=== PATIENT | male | born 1945 | race Caucasian/White ===

== ENCOUNTER 2021-04-23 10:50 | Outpatient (CLI) | payer MEDICARE, BC ==
[~2021-04-23] VITALS: Ht 185.4 cm; Wt 108.9 kg
[2021-04-23 10:37] LABS: BASOPHILS % (AUTO) 0.2 % (0-1); EOSINOPHILS # (AUTO) 0.2 X10'3 (0-0.9); EOSINOPHILS % (AUTO) 2.8 % (0-6); LYMPHOCYTES # (AUTO) 1.5 X10'3 (1.1-4.8); LYMPHOCYTES % (AUTO) 23.9 % (21-51); MEAN CORPUSCULAR HEMOGLOBIN 28.3 PG (27.0-31.0); MEAN CORPUSCULAR HGB CONC 33.6 g/dL (33.0-36.5); MEAN CORPUSCULAR VOLUME 84.3 FL (78-98); MEAN PLATELET VOLUME 7.6 FL (7.4-10.4); MONOCYTES # (AUTO) 0.6 X10'3 (0-0.9); MONOCYTES % (AUTO) 10.2 % (2-12); NEUTROPHILS # (AUTO) 3.9 X10'3 (1.8-7.7); NEUTROPHILS % (AUTO) 62.9 % (42-75); PRE OP HEMATOCRIT 41.5 % (42.0-52.0); PRE OP HEMOGLOBIN 13.9 g/dL (14.0-17.9); PRE OP PLATELET COUNT 226 X10'3 (140-440); RED BLOOD COUNT 4.92 X10'6 (4.70-6.10); RED CELL DISTRIBUTION WIDTH 15.4 % (11.5-14.5)
[2021-04-23 10:43] LABS: PRE OP PROTIME 10.8 SECONDS (9.0-12.0)
[2021-04-23 10:47] LABS: ALBUMIN 3.4 G/DL (3.4-5.0); ALKALINE PHOSPHATASE 91 IU/L (46-116); BLOOD UREA NITROGEN 15 MG/DL (7-18); BUN/CREATININE RATIO 10.7 (5.4-32.0); CALCIUM 8.9 MG/DL (8.5-10.1); CHLORIDE 107 MMOL/L (99-107); PRE OP ALT 42 U/L (30-65); PRE OP ANION GAP 4 (8-16); PRE OP AST 22 U/L (10-37); PRE OP BILIRUB, TOTAL 0.9 MG/DL (0.0-1.0); PRE OP GLUCOSE 99 MG/DL (70-104); PRE OP POTASSIUM 4.4 MMOL/L (3.4-5.1); PRE OP SODIUM 139 MMOL/L (135-145); TOTAL CARBON DIOXIDE 28.3 MMOL/L (24-32); TOTAL PROTEIN 6.9 G/DL (6.4-8.2); eGFR 50 ML/MIN
[~2021-04-23 10:50] MED LIST: METO-395 PO
[2021-04-27] MEDS ORDERED: ringers solution, lacted 1,000 ML IV SCH (05:00)
[2021-04-27] MEDS ORDERED: DOCUMENT DATE & TIME OF BETA-BLOCKER PO ONE (05:30)
[2021-04-27] MEDS ORDERED: famotidine 20mg tablet PO ONE (05:30)
[2021-04-27] MEDS ORDERED: cefazolin/dext.iso 2gm/50ml IV ONE (05:30)
== END 2021-04-23 23:59 | disposition home or self-care (01) ==
LOC: PRE-OP 10:50 → EDSTATUS 04-27 12:00
PROVIDERS: ATTEND Surgery
DX: Z01.812 Encounter for preprocedural laboratory examination (principal); R91.8 Other nonspecific abnormal finding of lung field; Z20.822 Contact with and (suspected) exposure to COVID-19
CPT/HCPCS: 36415; 71046; 80053; 85025; 85610; 85730; 86885; 86900; 86901; 87081; U0003; U0005; J0690; J7120

== ENCOUNTER 2021-06-04 07:33 | Inpatient (IN) | payer MEDICARE, BC ==
[2021-05-30 15:42] LABS: BASOPHILS % (AUTO) 0.1 % (0-1); EOSINOPHILS # (AUTO) 0.2 X10'3 (0-0.9); EOSINOPHILS % (AUTO) 4.2 % (0-6); LYMPHOCYTES # (AUTO) 1.5 X10'3 (1.1-4.8); LYMPHOCYTES % (AUTO) 26.7 % (21-51); MEAN CORPUSCULAR HEMOGLOBIN 27.3 PG (27.0-31.0); MEAN CORPUSCULAR HGB CONC 32.4 g/dL (33.0-36.5); MEAN CORPUSCULAR VOLUME 84.3 FL (78-98); MEAN PLATELET VOLUME 7.4 FL (7.4-10.4); MONOCYTES # (AUTO) 0.7 X10'3 (0-0.9); MONOCYTES % (AUTO) 12.4 % (2-12); NEUTROPHILS # (AUTO) 3.3 X10'3 (1.8-7.7); NEUTROPHILS % (AUTO) 56.6 % (42-75); PRE OP HEMOGLOBIN 13.3 g/dL (14.0-17.9); PRE OP PLATELET COUNT 239 X10'3 (140-440); RED BLOOD COUNT 4.86 X10'6 (4.70-6.10)
[2021-05-30 15:51] LABS: APTT 27 SECONDS (22-32)
[2021-05-30 15:53] LABS: CLARITY,URINE CLEAR (Clear); COLOR,URINE YELLOW (Yellow); GLUCOSE, URINE NEGATIVE (Neg); KETONES,URINE NEGATIVE (Neg); LEUKOCYTE ESTERASE ,URINE NEGATIVE (Neg); NITRITES, URINE NEGATIVE (Neg); OCCULT BLOOD,URINE NEGATIVE (Neg); PH,URINE 5.5 (4.8-8.0); PROTEIN,URINE NEGATIVE (Neg); UROBILINOGEN,URINE 0.2 E.U/dL (0.2-1.0)
[2021-05-30 15:53] LABS: ABG BASE EXCESS 0.4 mmol/L (-2.0-2.0); ABG HCO3 24.4 mmol/L (22.0-26.0); ABG OXYGEN SATURATION 95.9 % (94-97); ABG PCO2 (T) 37.4 mmHg (35.0-48.0); ABG PO2 (T) 75.8 mmHg (75.0-100.0); ALLEN'S TEST POSITIVE; FCOHb 0.8 % (0.0-3.9); FMetHb 0.3 % (0.0-1.5); FO2Hb 94.8 % (94-97)
[2021-05-30 15:54] LABS: UA COLLECTION TYPE CLN CATCH MIDSTREAM
[2021-05-30 15:58] LABS: ALBUMIN 3.2 G/DL (3.4-5.0); ALBUMIN/GLOBULIN RATIO 0.9 (1.1-1.5); ALKALINE PHOSPHATASE 176 IU/L (46-116); BLOOD UREA NITROGEN 13 MG/DL (7-18); BUN/CREATININE RATIO 9.6 (5.4-32.0); CALCIUM 8.8 MG/DL (8.5-10.1); CHLORIDE 105 MMOL/L (99-107); CREATININE 1.36 MG/DL (0.60-1.10); PRE OP ALT 64 U/L (30-65); PRE OP ANION GAP 10 (8-16); PRE OP AST 37 U/L (10-37); PRE OP BILIRUB, TOTAL 0.9 MG/DL (0.0-1.0); PRE OP GLUCOSE 102 MG/DL (70-104); PRE OP POTASSIUM 4.6 MMOL/L (3.4-5.1); PRE OP SODIUM 140 MMOL/L (135-145); TOTAL CARBON DIOXIDE 25.4 MMOL/L (24-32); TOTAL PROTEIN 6.6 G/DL (6.4-8.2); eGFR 51 ML/MIN
[2021-06-04] VITALS (11 sets, daily range): BP systolic 125–156; BP diastolic 70–90
[~2021-06-04] VITALS: Ht 185.4 cm; Wt 108.9 kg
[~2021-06-04 07:33] MED LIST changes: +DOCUMENT DATE & TIME OF BETA-BLOCKER PO ONE; +albuterol 2.5 MG/3 ML nebule NEB PRN; +cefazolin/dext.iso 2gm/50ml IV ONE; +famotidine 20mg tablet PO ONE; +ringers solution, lacted 1,000 ML IV SCH
[2021-06-04] MEDS ORDERED: iohexol 300mg/ml 100ml inj. ONE ×2 (09:15→09:34)
--- NOTE | 2021-06-04 10:05 | NUR ---
[facility]
--- NOTE | 2021-06-04 12:16 | NUR ---
PATIENT RIGHT WRIST MEASURE AT 8 INCHES AND 1/4 PREVIOUSLY AND REMAINS UNCHANGED. WARM COMPRESSES RE APPLIED NEEDED AND CONTINUED TO ELEVATE RIGHT ARM.
[2021-06-04] MEDS ORDERED: BUPIVAcaine 0.5% inj/PF 30 ML ONE ×2 (12:42→13:27)
[2021-06-04] MEDS ORDERED: BUPIVACAINE liposomal/PF 13.3 MG/ML vial IM ONE (12:42)
--- NOTE | 2021-06-04 12:53 | NUR ---
EDEMA UNCHANGED DR SANTOS NOTIFIED OF INFILTRATION DURING CT. RUE REMAins elevated with compresses on
--- NOTE | 2021-06-04 13:35 | NUR ---
wrist measured at 8 1/2 inch around so slightly more edema. dr carreon here to see patient and was able to check on patients right hand edema. he advised to keep elevated and start iv on left side which was done and fluids running on left side only. patient going back to OR now and OR nurse notified of infiltration as well.
[2021-06-04] MEDS ORDERED: albumin (Human) 5% 250ml BOTTLE IV ONE (13:36)
[2021-06-04] MEDS ORDERED: sevoflurane 250ml liquid IH ONE (13:36)
[2021-06-04] MEDS ORDERED: midazolam 1 mg/ML 2ml injection ONE (13:41)
[2021-06-04] MEDS ORDERED: propofol inj 20 ML IV ONE (16:40)
[2021-06-04] MEDS ORDERED: glycopyrrolate 0.2mg/ml inj ONE (16:40)
[2021-06-04] MEDS ORDERED: ePHEDrine 50MG/ML INJ. ONE (16:40)
[2021-06-04] MEDS ORDERED: rocuronium 10mg/ml inj IV ONE ×3 (16:40)
[2021-06-04] MEDS ORDERED: LIDOcaine 2% (20mg/ml) 5ml vial ONE (16:40)
[2021-06-04] MEDS ORDERED: fentaNYL /PF 50mcg/ml 5ml ampule ONE (16:40)
[2021-06-04] MEDS ORDERED: meperidine/PF 25mg/ml syringe IV PRN ×2 (17:45)
[2021-06-04] MEDS ORDERED: morphine 4 MG/ML inj SYRINge IV PRN ×2 (17:45→20:00)
[2021-06-04] MEDS ORDERED: morphine 2 MG/ML inj. syringe IV PRN ×2 (17:45→20:00)
[2021-06-04] MEDS ORDERED: labetalol 20mg/4ml (5mg/ml) syringe IV PRN (17:45)
[2021-06-04] MEDS ORDERED: proCHLORperazine 10 MG/2 ml inj IV PRN (17:45)
[2021-06-04] MEDS ORDERED: acetaminophen 1,000mg/100ml IV 100 ML IV PRN (17:45)
[2021-06-04] MEDS ORDERED: hydrALAZINE 20mg/ml inj. IV PRN (17:45)
[2021-06-04] MEDS ORDERED: ondansetron/PF 4mg/2ml inj IV PRN ×2 (17:45→20:00)
[2021-06-04] MEDS ORDERED: ringers solution, lacted 1,000 ML IV SCH (17:45)
[2021-06-04] MEDS ORDERED: sugammadex 200mg/2ml injection IV ONE (18:32)
[2021-06-04] MEDS ORDERED: ceFAZolin 1000mg inj ONE (19:08)
[2021-06-04] MEDS ORDERED: ondansetron/PF 4mg/2ml inj ONE (19:08)
[2021-06-04] MEDS ORDERED: dexamethasone sod phosphate 4mg/ml inj. ONE (19:08)
[2021-06-04] MEDS ORDERED: morphine 4 MG/ML inj SYRINge ONE (19:37)
--- NOTE | 2021-06-04 19:40 | NUR ---
Received from OR via HOSPITAL BED, accompanied by Anesthesiologist DR SANTOS and report given by Anesthesiolgist. PT PRESENTS WITH PIV 18G LEFT AC, 20G RIGHT AC, ART LINE LEFT WRIST, TRIPLE LUMEN CENTRAL LINE RIGHT NECK, CHEST TUBE LEFT CHEST, VSS. Addendum: 06/04/21 at 2008 by Leslie Whatley RN, RN Amended: Links added.
[2021-06-04] MEDS: meperidine/PF 25mg/ml syringe IV PRN ×2 (19:54→20:11)
[2021-06-04] MEDS ORDERED: HYDROcodone/acetaminophen 10/325mg tab PO PRN (20:00)
[2021-06-04] MEDS ORDERED: albuterol 2.5 MG/3 ML nebule NEB PRN (20:00)
[2021-06-04] MEDS ORDERED: CADD PCA waste documentation MC PRN (20:00)
[2021-06-04] MEDS ORDERED: naloxone 0.4 mg/ml inj IV PRN (20:00)
[2021-06-04] MEDS ORDERED: potassium Cl 20mEq in D5-NS 1,000 ML IV SCH (20:00)
[2021-06-04] MEDS ORDERED: HYDROmorphone inj. 0.5 MG/0.5 ML DISP.SYRIN IV PRN (20:00)
[2021-06-04 20:07] LABS: ABG BASE EXCESS -4.2 mmol/L (-2.0-2.0); ABG OXYGEN SATURATION 98.7 % (94-97); ABG PCO2 (T) 37.1 mmHg (35.0-48.0); ABG PO2 (T) 128.5 mmHg (75.0-100.0); FCOHb 0.3 % (0.0-3.9); FLOW 8 L/min; FMetHb 0.3 % (0.0-1.5); FO2Hb 98.1 % (94-97); TOTAL HEMOGLOBIN 13.2 G/dl (14.0-18.0)
--- NOTE | 2021-06-04 20:40 | NUR ---
Report called to receiving nurse JASON SANCHEZ. Transferred via HOSPITAL BED WITH MONITOR AND SUCTION FOR CHEST TUBE TO ROOM 2043. DENTURES AND 2 PT Belonging BAGS TO ROOM 2043. Special Issues communicated to receiving nurse. Addendum: 06/04/21 at 2055 by Leslie Whatley RN RN Amended: Links added.
[2021-06-04] MEDS: gabapentin 300mg capsule PO SCH (21:43)
[2021-06-04] MEDS: HYDROcodone/acetaminophen 10/325mg tab PO PRN (21:44)
[2021-06-05] VITALS (23 sets, daily range): BP systolic 113–188; BP diastolic 50–70
[2021-06-05] MEDS: ceFAZolin 1GM/D5W- ADD-VANTAGE 50 ML IV SCH ×2 (00:02→07:11)
[2021-06-05] MEDS: metoclopramide 5 mg/ml inj IV PRN ×2 (00:42→09:01)
[2021-06-05 03:30] LABS: BASOPHILS % (AUTO) 0.1 % (0-1); EOSINOPHILS % (AUTO) 0 % (0-6); HEMATOCRIT 38.6 % (42.0-52.0); HEMOGLOBIN 12.4 g/dl (14.0-17.9); LYMPHOCYTES # (AUTO) 0.4 X10'3 (1.1-4.8); LYMPHOCYTES % (AUTO) 3.7 % (21-51); MEAN CORPUSCULAR HEMOGLOBIN 27.1 PG (27.0-31.0); MEAN CORPUSCULAR HGB CONC 32.1 g/dL (33.0-36.5); MEAN CORPUSCULAR VOLUME 84.6 FL (78-98); MEAN PLATELET VOLUME 7.2 FL (7.4-10.4); MONOCYTES # (AUTO) 0.6 X10'3 (0-0.9); MONOCYTES % (AUTO) 6.2 % (2-12); NEUTROPHILS # (AUTO) 8.7 X10'3 (1.8-7.7); PLATELET COUNT 235 X10'3 (140-440); RED BLOOD COUNT 4.56 X10'6 (4.70-6.10); RED CELL DISTRIBUTION WIDTH 16.1 % (11.5-14.5); WHITE BLOOD COUNT 9.7 X10'3 (4.5-11.0)
[2021-06-05 03:39] LABS: ALANINE AMINOTRANSFERASE 54 U/L (12-78); ALBUMIN 2.8 G/DL (3.4-5.0); ALBUMIN/GLOBULIN RATIO 0.8 (1.1-1.5); ALKALINE PHOSPHATASE 139 IU/L (46-116); ANION GAP 11 (8-16); ASPARTATE AMINO TRANSFERASE 32 U/L (10-37); BILIRUBIN,TOTAL 0.6 MG/DL (0.1-1.0); BLOOD UREA NITROGEN 13 MG/DL (7-18); BUN/CREATININE RATIO 8.6 (5.4-32.0); CALCIUM 8.2 MG/DL (8.5-10.1); CHLORIDE 105 MMOL/L (99-107); CREATININE 1.52 MG/DL (0.60-1.10); GLUCOSE 225 MG/DL (70-104); MAGNESIUM 1.7 MG/DL (1.5-2.4); POTASSIUM 4.7 MMOL/L (3.5-5.1); SODIUM 140 MMOL/L (135-145); TOTAL CARBON DIOXIDE 23.8 MMOL/L (24-32); TOTAL PROTEIN 6.4 G/DL (6.4-8.2); eGFR 45 ML/MIN
[2021-06-05] MEDS ORDERED: glucagon, human recombinant 1mg kit SUBCUT PRN (07:35)
[2021-06-05] MEDS ORDERED: insulin Lispro (HumaLOG) vial - multi-dose SQ SCH (07:35)
[2021-06-05] MEDS ORDERED: MESSAGE TO PHARMACY PO ONE (07:35)
[2021-06-05] MEDS ORDERED: dextrose 50%-water 50ml dispensing syringe IV PRN ×2 (07:35)
[2021-06-05] MEDS ORDERED: DEXTROSE 15 GM of carb/4 tabs (each vial/BOTTLE has 4 tablets) PO PRN ×2 (07:35)
[2021-06-05 08:24] LABS: HEMOGLOBIN A1C 6.3 % (4.5-6.2)
[2021-06-05] MEDS: magnesium oxide 400mg tablet PO SCH ×2 (08:50→16:57)
[2021-06-05] MEDS: gabapentin 300mg capsule PO SCH ×2 (08:51→20:02)
[2021-06-05] MEDS: HYDROcodone/acetaminophen 10/325mg tab PO PRN (08:51)
[2021-06-05] MEDS ORDERED: bisacodyl 10mg suppository rectal RC ONE (11:45)
[2021-06-05] MEDS: ringers solution, lacted 1,000 ML IV SCH (12:06)
[2021-06-05] MEDS: magnesium hydroxide 30ml (MOM) UD suspension PO SCH ×2 (12:14→20:00)
--- NOTE | 2021-06-05 18:30 | NUR ---
Patient in room ICU 2043. I have received report from DANIEL Alfonso and had the opportunity to ask questions and assume patient care.
[2021-06-05] MEDS: sennosides/docusate sodium tablet PO SCH (20:00)
[2021-06-05] MEDS: polyethylene glycol 3350 17gm powd pack PO SCH (20:00)
[2021-06-05] MEDS: furosemide 20 MG/2 ML vial IV SCH (20:58)
[2021-06-05] MEDS: insulin glargine (Lantus) pen - multi-dose SQ SCH (21:00)
[2021-06-06] VITALS (16 sets, daily range): BP systolic 125–148; BP diastolic 60–80
[2021-06-06] MEDS: magnesium oxide 400mg tablet PO SCH ×6 (00:20→23:51)
[2021-06-06 02:30] LABS: BASOPHILS % (AUTO) 0.3 % (0-1); EOSINOPHILS # (AUTO) 0.1 X10'3 (0-0.9); EOSINOPHILS % (AUTO) 0.7 % (0-6); HEMATOCRIT 36.2 % (42.0-52.0); HEMOGLOBIN 11.8 g/dl (14.0-17.9); LYMPHOCYTES # (AUTO) 0.8 X10'3 (1.1-4.8); LYMPHOCYTES % (AUTO) 10.7 % (21-51); MEAN CORPUSCULAR HEMOGLOBIN 27.4 PG (27.0-31.0); MEAN CORPUSCULAR HGB CONC 32.6 g/dL (33.0-36.5); MEAN CORPUSCULAR VOLUME 84.1 FL (78-98); MEAN PLATELET VOLUME 7.3 FL (7.4-10.4); MONOCYTES # (AUTO) 0.8 X10'3 (0-0.9); NEUTROPHILS # (AUTO) 5.8 X10'3 (1.8-7.7); NEUTROPHILS % (AUTO) 77.3 % (42-75); PLATELET COUNT 224 X10'3 (140-440); RED CELL DISTRIBUTION WIDTH 15.8 % (11.5-14.5); WHITE BLOOD COUNT 7.5 X10'3 (4.5-11.0)
[2021-06-06 02:49] LABS: ALANINE AMINOTRANSFERASE 38 U/L (12-78); ALBUMIN 2.8 G/DL (3.4-5.0); ALBUMIN/GLOBULIN RATIO 0.8 (1.1-1.5); ALKALINE PHOSPHATASE 120 IU/L (46-116); ANION GAP 8 (8-16); ASPARTATE AMINO TRANSFERASE 34 U/L (10-37); BILIRUBIN,TOTAL 0.9 MG/DL (0.1-1.0); BLOOD UREA NITROGEN 18 MG/DL (7-18); BUN/CREATININE RATIO 13.3 (5.4-32.0); CALCIUM 8.3 MG/DL (8.5-10.1); CHLORIDE 106 MMOL/L (99-107); CREATININE 1.35 MG/DL (0.60-1.10); GLUCOSE 125 MG/DL (70-104); MAGNESIUM 1.9 MG/DL (1.5-2.4); POTASSIUM 3.9 MMOL/L (3.5-5.1); SODIUM 141 MMOL/L (135-145); TOTAL CARBON DIOXIDE 27.3 MMOL/L (24-32); TOTAL PROTEIN 6.1 G/DL (6.4-8.2); eGFR 52 ML/MIN
--- NOTE | 2021-06-06 06:30 | NUR ---
Problems reprioritized. Patient report given, questions answered & plan of care reviewed with DANIEL Blandon.
[2021-06-06] MEDS: magnesium hydroxide 30ml (MOM) UD suspension PO SCH ×2 (08:00→19:50)
[2021-06-06] MEDS: sennosides/docusate sodium tablet PO SCH ×2 (08:00→19:50)
[2021-06-06] MEDS: gabapentin 300mg capsule PO SCH (08:42)
[2021-06-06] MEDS: furosemide 20 MG/2 ML vial IV SCH ×2 (08:43→19:54)
--- NOTE | 2021-06-06 15:00 | NUR ---
Per transfer orders, removed hewitt and set chest tube to water seal
--- NOTE | 2021-06-06 17:20 | NUR ---
Per orders pt moved to ACCE unit. report given to Tia SANCHEZ, questions answered. Pt moved to ACCE with all personal belongings
[2021-06-06] MEDS: polyethylene glycol 3350 17gm powd pack PO SCH (19:49)
[2021-06-06] MEDS: insulin glargine (Lantus) pen - multi-dose SQ SCH (21:00)
[2021-06-07 02:00] VITALS: BP 137/71
[2021-06-07 05:14] LABS: BASOPHILS % (AUTO) 0.2 % (0-1); EOSINOPHILS # (AUTO) 0.2 X10'3 (0-0.9); EOSINOPHILS % (AUTO) 2.8 % (0-6); HEMATOCRIT 34.9 % (42.0-52.0); HEMOGLOBIN 11.5 g/dl (14.0-17.9); LYMPHOCYTES # (AUTO) 1.4 X10'3 (1.1-4.8); LYMPHOCYTES % (AUTO) 19.1 % (21-51); MEAN CORPUSCULAR HEMOGLOBIN 27.6 PG (27.0-31.0); MEAN CORPUSCULAR VOLUME 83.6 FL (78-98); MONOCYTES # (AUTO) 0.8 X10'3 (0-0.9); MONOCYTES % (AUTO) 11.1 % (2-12); NEUTROPHILS # (AUTO) 5.1 X10'3 (1.8-7.7); NEUTROPHILS % (AUTO) 66.8 % (42-75); PLATELET COUNT 239 X10'3 (140-440); RED BLOOD COUNT 4.17 X10'6 (4.70-6.10); RED CELL DISTRIBUTION WIDTH 15.4 % (11.5-14.5); WHITE BLOOD COUNT 7.6 X10'3 (4.5-11.0)
[2021-06-07 05:29] LABS: ALANINE AMINOTRANSFERASE 35 U/L (12-78); ALBUMIN 2.7 G/DL (3.4-5.0); ALBUMIN/GLOBULIN RATIO 0.9 (1.1-1.5); ALKALINE PHOSPHATASE 108 IU/L (46-116); ANION GAP 6 (8-16); ASPARTATE AMINO TRANSFERASE 34 U/L (10-37); BILIRUBIN,TOTAL 0.8 MG/DL (0.1-1.0); BLOOD UREA NITROGEN 20 MG/DL (7-18); BUN/CREATININE RATIO 15.5 (5.4-32.0); CALCIUM 7.7 MG/DL (8.5-10.1); CHLORIDE 105 MMOL/L (99-107); CREATININE 1.29 MG/DL (0.60-1.10); GLUCOSE 97 MG/DL (70-104); POTASSIUM 4.1 MMOL/L (3.5-5.1); SODIUM 141 MMOL/L (135-145); TOTAL CARBON DIOXIDE 30.2 MMOL/L (24-32); TOTAL PROTEIN 5.7 G/DL (6.4-8.2); eGFR 55 ML/MIN
[2021-06-07 06:00] VITALS: BP 128/60
--- NOTE | 2021-06-07 06:07 | NUR ---
Problems reprioritized. Patient report given, questions answered & plan of care reviewed with Tia SANCHEZ.
[2021-06-07] MEDS: sennosides/docusate sodium tablet PO SCH (07:10)
[2021-06-07] MEDS: magnesium oxide 400mg tablet PO SCH ×4 (07:11→16:07)
[2021-06-07] MEDS: furosemide 20 MG/2 ML vial IV SCH (07:11)
[2021-06-07] MEDS: magnesium hydroxide 30ml (MOM) UD suspension PO SCH (08:00)
[2021-06-07 10:00] VITALS: BP 124/58
[2021-06-07] MEDS ORDERED: morphine 2 MG/ML inj. syringe IV ONE (10:50)
--- NOTE | 2021-06-07 10:57 | NUR ---
Pt given morphine 2mg IV per dr. Aldana's order scanner did not work.
--- NOTE | 2021-06-07 10:58 | NUR ---
Dr. Aldana pulled pt's chest tube pt tolerated well.
[2021-06-07] MEDS: ringers solution, lacted 1,000 ML IV SCH (11:45)
[2021-06-07 12:46] VITALS: BP 133/73
--- NOTE | 2021-06-07 14:30 | NUR ---
d/c'd IJ per MD orders. Pressure held and gauze and tegaderm applied. Pt tolerated well with no blood loss.
[2021-06-07 15:00] VITALS: BP 126/73
--- NOTE | 2021-06-07 17:40 | NUR ---
PT stable for d/c per MD orders All d/c ppwk was reviewed with patient. Pt verbalized understanding. PIV was removed with ease. No new RX at this time. Dr Murguia wants patient to call his office tomorrow to schedule an appt for this Friday. Reinterated the importance of calling his office - he verbalized understanding. Tele was removed from pt. All personal belongings were sent with patient and pt was wheeled out by staff to private vehicle where son was waiting.
== END 2021-06-07 17:25 | disposition home or self-care (01) | DRG 163 ==
LOC: PAS IN 07:33 → ICU 2S 20:57 → MED 3N 06-06 17:25
PROVIDERS: ADMIT Surgery; ATTEND Surgery
PROC: 0W9B40Z Drainage of Left Pleural Cavity with Drainage Device, Percutaneous Endoscopic Approach (ICD-10-PCS; 2021-06-04)
PROC: 07B74ZX Excision of Thorax Lymphatic, Percutaneous Endoscopic Approach, Diagnostic (ICD-10-PCS; 2021-06-04)
PROC: 0BJ08ZZ Inspection of Tracheobronchial Tree, Via Natural or Artificial Opening Endoscopic (ICD-10-PCS; 2021-06-04)
PROC: BW241ZZ Computerized Tomography (CT Scan) of Chest and Abdomen using Low Osmolar Contrast (ICD-10-PCS; 2021-06-04)
PROC: 0BTG4ZZ Resection of Left Upper Lung Lobe, Percutaneous Endoscopic Approach (ICD-10-PCS; principal; 2021-06-04 13:36)
DX: C34.12 Malignant neoplasm of upper lobe, left bronchus or lung (principal); J96.01 Acute respiratory failure with hypoxia; I10 Essential (primary) hypertension; E66.9 Obesity, unspecified; I25.10 Atherosclerotic heart disease of native coronary artery without angina pectoris; R11.2 Nausea with vomiting, unspecified; Z68.31 Body mass index [BMI] 31.0-31.9, adult; Z91.040 Latex allergy status; Z79.899 Other long term (current) drug therapy
CPT/HCPCS: 36415; 36600; 71045; 71260; 74018; 80053; 81003; 82803; 82948; 83036; 83735; 85018; 85025; 85610; 85730; 86885; 86900; 86901; 87081; 94640; 94760; 97116; 97161; 97530; A4618; A6258; A6449; A7000; A7048; C1758; C9290; G0378; J0131; J0690; J1100; J1815; J1940; J2175; J2250; J2270; J2405; J2704; J2765; J3010; J3480; J3490; J7030; J7040; J7120; P9045; Q9967; S0020

== ENCOUNTER 2023-05-20 08:44 | Outpatient (CLI) | payer MEDICARE, BC ==
[~2023-05-20 08:44] MED LIST changes: -DOCUMENT DATE & TIME OF BETA-BLOCKER PO ONE; -albuterol 2.5 MG/3 ML nebule NEB PRN; -cefazolin/dext.iso 2gm/50ml IV ONE; -famotidine 20mg tablet PO ONE; -ringers solution, lacted 1,000 ML IV SCH
== END 2023-05-20 23:59 | disposition home or self-care (01) ==
LOC: RAD 08:44
PROVIDERS: ATTEND Surgery
DX: N20.0 Calculus of kidney (principal); N28.1 Cyst of kidney, acquired; K46.9 Unspecified abdominal hernia without obstruction or gangrene
CPT/HCPCS: 74176

== ENCOUNTER 2023-06-06 10:03 | Observation (INO) | payer MEDICARE, BC ==
[2023-06-02 11:05] LABS: BILIRUBIN,URINE NEGATIVE (Neg); CLARITY,URINE CLEAR (Clear); COLOR,URINE YELLOW (Yellow); GLUCOSE, URINE NEGATIVE (Neg); KETONES,URINE NEGATIVE (Neg); LEUKOCYTE ESTERASE ,URINE NEGATIVE (Neg); NITRITES, URINE NEGATIVE (Neg); OCCULT BLOOD,URINE NEGATIVE (Neg); PROTEIN,URINE NEGATIVE (Neg); UROBILINOGEN,URINE 0.2 E.U/dL (0.2-1.0)
[2023-06-02 11:17] LABS: BASOPHILS % (AUTO) 0.4 % (0-1); EOSINOPHILS # (AUTO) 0.1 X10'3 (0-0.9); EOSINOPHILS % (AUTO) 1.7 % (0-6); LYMPHOCYTES # (AUTO) 2.2 X10'3 (1.1-4.8); LYMPHOCYTES % (AUTO) 25.6 % (21-51); MEAN CORPUSCULAR HEMOGLOBIN 28.7 PG (27.0-31.0); MEAN CORPUSCULAR HGB CONC 32.6 g/dL (33.0-36.5); MEAN CORPUSCULAR VOLUME 87.9 FL (78-98); MEAN PLATELET VOLUME 7.8 FL (7.4-10.4); MONOCYTES # (AUTO) 0.8 X10'3 (0-0.9); NEUTROPHILS # (AUTO) 5.5 X10'3 (1.8-7.7); NEUTROPHILS % (AUTO) 63.3 % (42-75); PRE OP HEMATOCRIT 47.1 % (42.0-52.0); PRE OP HEMOGLOBIN 15.4 g/dL (14.0-17.9); PRE OP PLATELET COUNT 212 X10'3 (140-440); PRE OP WHITE BLOOD COUNT 8.8 10'3 (4.8-10.8); RED BLOOD COUNT 5.36 X10'6 (4.70-6.10); RED CELL DISTRIBUTION WIDTH 16.4 % (11.5-14.5)
[2023-06-02 11:23] LABS: UA COLLECTION TYPE VOIDED
[2023-06-02 11:24] LABS: ALBUMIN 3.6 G/DL (3.4-5.0); ALKALINE PHOSPHATASE 66 IU/L (46-116); BLOOD UREA NITROGEN 15 MG/DL (7-18); BUN/CREATININE RATIO 9.5 (10.0-20.0); CALCIUM 8.3 MG/DL (8.5-10.1); CHLORIDE 107 MMOL/L (99-107); CREATININE 1.58 MG/DL (0.60-1.10); PRE OP ALT 26 U/L (30-65); PRE OP ANION GAP 7 (8-16); PRE OP AST 18 U/L (10-37); PRE OP BILIRUB, TOTAL 1.2 MG/DL (0.0-1.0); PRE OP GLUCOSE 70 MG/DL (70-104); PRE OP POTASSIUM 4.7 MMOL/L (3.4-5.1); PRE OP SODIUM 144 MMOL/L (135-145); TOTAL CARBON DIOXIDE 29.9 MMOL/L (24-32); TOTAL PROTEIN 7.2 G/DL (6.4-8.2); eGFR 43 ML/MIN
[2023-06-06] VITALS (43 sets, daily range): BP systolic 130–182; BP diastolic 63–110; PULSE 47–88; RESP 10–20; TEMP 97.6–97.9; O2SAT 91–99
[~2023-06-06] VITALS: Ht 182.9 cm; Wt 91.9 kg
[2023-06-06] MEDS: ceFOXitin 2GM-NS 100mL ADDvant 100 ML IV ONE (05:30)
[~2023-06-06 10:03] MED LIST changes: +DOCUMENT DATE & TIME OF BETA-BLOCKER PO ONE; +albuterol 2.5 MG/3 ML nebule NEB ONE
[2023-06-06] MEDS: famotidine 20mg tablet PO ONE (10:48)
[2023-06-06] MEDS: ringers solution, lacted 1,000 ML IV SCH ×2 (10:50→12:45)
[2023-06-06] MEDS: albuterol 2.5 MG/3 ML nebule NEB ONE (11:05)
[2023-06-06 11:33] LABS: APTT 28 SECONDS (22-32); INR 1.1 INR; PROTHROMBIN TIME 11.4 SECONDS (9.0-12.0)
[2023-06-06] MEDS ORDERED: midazolam 1 mg/ML 2ml injection ONE (12:38)
[2023-06-06] MEDS ORDERED: fentaNYL/PF 50MCG/1 ML 2ML syringe ONE (12:38)
[2023-06-06] MEDS ORDERED: LIDOcaine 2% (20mg/ml) 5ml vial ONE (12:39)
[2023-06-06] MEDS ORDERED: propofol inj 20 ML IV ONE (12:39)
[2023-06-06] MEDS ORDERED: ondansetron/PF 4mg/2ml inj ONE (12:39)
[2023-06-06] MEDS ORDERED: rocuronium 10mg/ml inj IV ONE (12:39)
[2023-06-06] MEDS ORDERED: hydrALAZINE 20mg/ml inj. IV PRN (12:45)
[2023-06-06] MEDS ORDERED: labetalol 20mg/4ml (5mg/ml) syringe IV PRN (12:45)
[2023-06-06] MEDS ORDERED: morphine 4 MG/ML inj SYRINge IV PRN (12:45)
[2023-06-06] MEDS ORDERED: fentaNYL/PF 50MCG/1 ML 2ML syringe IV PRN (12:45)
[2023-06-06] MEDS ORDERED: desflurane 240ml liquid inh. IH ONE (12:47)
[2023-06-06] MEDS ORDERED: dexamethasone sod phosphate 10mg/ml inj ONE (12:47)
[2023-06-06] MEDS ORDERED: acetaminophen 1,000mg/100ml IV 100 ML IV ONE (13:16)
[2023-06-06] MEDS: BUPIVAcaine 2.5mg/ml inj 50ml vial (contains preservative) ONE (13:23)
[2023-06-06] MEDS ORDERED: labetalol 20mg/4ml (5mg/ml) syringe IV ONE (13:25)
[2023-06-06] MEDS ORDERED: glycopyrrolate 0.2mg/ml inj ONE (14:28)
[2023-06-06] MEDS ORDERED: neostigmine methylsulfate 1 MG/ML 10ml vial ONE (14:28)
[2023-06-06] MEDS: ondansetron/PF 4mg/2ml inj IV PRN (15:12)
[2023-06-06] MEDS: morphine 2 MG/ML inj. syringe IV PRN (15:19)
[2023-06-06] MEDS: fentaNYL/PF 50MCG/1 ML 2ML syringe IV PRN (17:39)
[2023-06-06] MEDS ORDERED: oxyCODONE/APAP 5-325mg tablet PO PRN (19:00)
[2023-06-06] MEDS: metoprolol tartrate 12.5mg (1/2 tablet) PO SCH (21:10)
[2023-06-06] MEDS: oxyCODONE/APAP 5-325mg tablet PO ONE (21:10)
[2023-06-06] MEDS: potassium CL 20mEq in D5-1/2NS 1,000 ML IV SCH (21:52)
[2023-06-07 00:47] VITALS: BP 138/72; PULSE 56; RESP 16; O2SAT 96
[2023-06-07 02:00] VITALS: BP 108/66; PULSE 59; RESP 16; TEMP 97.3; O2SAT 97
[2023-06-07 04:00] VITALS: BP 118/72; PULSE 58; RESP 16; O2SAT 97
[2023-06-07 06:00] VITALS: BP 133/67; PULSE 47; RESP 18; TEMP 97.3; O2SAT 98
[2023-06-07] MEDS: ondansetron/PF 4mg/2ml inj IV PRN (07:18)
[2023-06-07] MEDS: HYDROmorphone inj. 0.5 MG/0.5 ML DISP.SYRIN IV PRN (07:24)
[2023-06-07 08:00] VITALS: RESP 20; O2SAT 96
[2023-06-07 11:00] VITALS: BP 119/62; PULSE 55; RESP 16; TEMP 97.6; O2SAT 96
[2023-06-07] MEDS ORDERED: HYDR-3965 PO (15:41)
== END 2023-06-07 16:42 | disposition home or self-care (01) ==
LOC: PRE-OP 10:03 → PCU 3S 18:59
PROVIDERS: ADMIT Surgery; ATTEND Surgery
DX: K43.2 Incisional hernia without obstruction or gangrene (principal); I12.9 Hypertensive chronic kidney disease with stage 1 through stage 4 chronic kidney disease, or unspecified chronic kidney disease; N18.30 Chronic kidney disease, stage 3 unspecified; N40.0 Benign prostatic hyperplasia without lower urinary tract symptoms; M19.90 Unspecified osteoarthritis, unspecified site; J43.9 Emphysema, unspecified; I25.2 Old myocardial infarction; Z91.040 Latex allergy status; Z87.891 Personal history of nicotine dependence; Z79.899 Other long term (current) drug therapy
CPT/HCPCS: 36415; 49595; 71045; 80053; 81003; 82948; 85025; 85610; 85730; 87081; 93005; 94640; 94760; 96374; 96375; 96376; C1781; G0378; J0131; J0694; J1100; J1170; J2250; J2270; J2405; J2704; J2710; J3010; J3480; J3490; J7120; A4215; A4615; A4618